=== PATIENT | female | born 2000 | race Caucasian/White ===

== ENCOUNTER 2020-02-07 18:04 | Emergency (ER) | payer OTHER, MEDICAID ==
[~2020-02-07] VITALS: Ht 147.3 cm; Wt 49.9 kg
[2020-02-07 18:15] VITALS: Ht 147.3 cm; Wt 49.9 kg
[2020-02-07 21:00] VITALS: BP 131/75
== END 2020-02-07 21:00 | disposition home or self-care (01) ==
LOC: ED 18:04
DX: S83.92XA Sprain of unspecified site of left knee, initial encounter (principal); S13.9XXA Sprain of joints and ligaments of unspecified parts of neck, initial encounter; V49.49XA Driver injured in collision with other motor vehicles in traffic accident, initial encounter; Y93.I9 Activity, other involving external motion; Y92.488 Other paved roadways as the place of occurrence of the external cause; Y99.8 Other external cause status